=== PATIENT | female | born 1935 | race Caucasian/White ===

== ENCOUNTER 2020-01-28 21:55 | Inpatient (IN) | payer MEDICARE ==
[~2020-01-28] VITALS: Ht 167.6 cm; Wt 61.7 kg
--- NOTE | 2020-01-28 22:00 | NUR ---
MALORIE 76 FROM [facility] FOR "CONGESTION, HYPERTENSION, ELEVATED WBC AND MORE AGITATED THAN NORMAL . PT APEARS A, OX 1 , FOLLOWS COMMAND. PT WAS PLACED IN BED 4, ON MONITOR,. WILL CONT TO MONITOR ,
[2020-01-28] MEDS ORDERED: FUROSEMIDE 40 MG/4 ML VIAL IV ONE (22:30)
[2020-01-28] MEDS ORDERED: FUROSEMIDE 40 MG/4 ML VIAL ONE (22:39)
[2020-01-28 22:52] LABS: BASOPHILS # (AUTO) 0.1 /CMM (0.0-0.2); BASOPHILS % (AUTO) 0.4 % (0.0-2.0); HEMATOCRIT 28 % (33-45); HEMOGLOBIN 8.8 g/dL (11.5-14.8); LYMPHOCYTES # (AUTO) 0.4 /CMM (0.8-4.8); LYMPHOCYTES % (AUTO) 2.7 % (20.0-44.0); MEAN CORPUSCULAR HGB CONC 31 g/dl (31.0-36.0); MEAN CORPUSCULAR VOLUME 101 fL (82-100); MONOCYTES # (AUTO) 1.1 /CMM (0.1-1.30); MONOCYTES % (AUTO) 7.9 % (2.0-12.0); NEUTROPHILS # (AUTO) 12.3 /CMM (1.8-8.9); PLATELET COUNT (AUTO) 318 /CMM (150-450); WHITE BLOOD COUNT (AUTO) 13.8 K/uL (4.3-11.0)
[2020-01-28 23:21] LABS: ALANINE AMINOTRANSFERASE 18 U/L (12-78); ALKALINE PHOSPHATASE 52 U/L (46-116); ASPARTATE AMINOTRANSFERASE 37 U/L (15-37); B-TYPE NATRIURETIC PEPTIDE 30848 PG/ML (0-125); BILIRUBIN,DIRECT 0.6 mg/dL (0.0-0.2); BILIRUBIN,TOTAL 1.1 mg/dL (0.2-1.0); CALCIUM, SERUM 9.7 mg/dL (8.5-10.1); CARBON DIOXIDE 22 mmol/L (21-32); CHLORIDE 109 mmol/L (98-107); CREATININE 2.3 mg/dL (0.6-1.3); GLUCOSE 117 mg/dL (74-106); SODIUM SERUM 148 mmol/L (136-145); TOTAL PROTEIN, SERUM 6.4 g/dL (6.4-8.2); UREA NITROGEN, BLOOD 49 mg/dL (7-18)
[2020-01-28 23:24] LABS: POTASSIUM 2.7 mmol/L (3.5-5.1)
--- NOTE | 2020-01-28 23:47 | NUR ---
CALL FROM LAB, RAPID COVID POSITIVE
--- NOTE | 2020-01-28 23:56 | NUR ---
SPOKE TO GLORY (DAUGHTER) AND UPDATED HER RE PT'S CONDITION
--- NOTE | 2020-01-29 00:28 | NUR ---
DR. DRUMMOND PAGED PER ER ORDER.
[2020-01-29] MEDS ORDERED: MULT-213 PO (00:44)
[2020-01-29] MEDS ORDERED: ATOR20TA PO (00:44)
[2020-01-29] MEDS ORDERED: CLON-418 PO (00:44)
[2020-01-29] MEDS ORDERED: METO-358 PO (00:44)
[2020-01-29] MEDS ORDERED: ASCO500W7 PO (00:44)
[2020-01-29] MEDS ORDERED: DILT240C88 PO (00:44)
[2020-01-29] MEDS ORDERED: MONT10TA22 PO (00:44)
[2020-01-29] MEDS ORDERED: COUM1POW MC (00:44)
[2020-01-29] MEDS ORDERED: CALC1TAB3 PO (00:44)
[2020-01-29] MEDS ORDERED: ZINC220T4 PO (00:44)
[2020-01-29] MEDS: POTASSIUM CL. PREMIX PERIPHER. 50 ML IV SCH ×4 (01:05→06:50)
[2020-01-29] MEDS ORDERED: POTASSIUM CL. PREMIX PERIPHER. 50 ML ONE ×2 (01:57→04:48)
--- NOTE | 2020-01-29 04:00 | NUR ---
pt noted w/ infiltrated IV site on the RAC. a new 22G IV line was successfully stablished on the L wrist after multiple attempts. IV potassium chloride was resumed. will cont to monitor ,
--- NOTE | 2020-01-29 04:26 | NUR ---
relayed high BP and HR w/ afib on monitor. awaiting for response
[2020-01-29] MEDS ORDERED: DILTIAZEM HCL 25 MG IV ONE ×2 (04:49→21:22)
[2020-01-29] MEDS ORDERED: DILTIAZEM HCL 50 MG IV IV ONE ×2 (05:00→07:00)
[2020-01-29] MEDS ORDERED: ZOLPIDEM TARTRATE 5 MG TABLET PO PRN ×2 (06:30→11:30)
[2020-01-29] MEDS ORDERED: Z GUARD REMEDY 2 OZ OINT TP PRN ×2 (06:30→11:30)
[2020-01-29] MEDS ORDERED: ACETAMINOPHEN 325 MG TABLET PO PRN ×2 (06:30→11:30)
[2020-01-29] MEDS ORDERED: MAG HYDROX/AL HYDROX/SIMETH 30 ML UDC PO PRN (06:30)
[2020-01-29] MEDS ORDERED: MAGNESIUM HYDROXIDE 30 ML UDC PO PRN (06:30)
[2020-01-29] MEDS ORDERED: VANCOMYCIN 1 GM in IV D5W 250 ML IV SCH (06:30)
[2020-01-29] MEDS ORDERED: HYDROCODONE/APAP 5/325MG TABLET PO PRN (06:30)
[2020-01-29] MEDS ORDERED: ONDANSETRON HCL/PF 4 MG/2 ML VIAL IVP PRN ×2 (06:30→11:30)
--- NOTE | 2020-01-29 06:53 | NUR ---
high hr and bp was relayed to dr ella head a new order for diltiazem. noted
[2020-01-29] MEDS ORDERED: DILTIAZEM HCL 25 MG IV INJ ONE (07:00)
--- NOTE | 2020-01-29 08:00 | NUR ---
PATIENT A/OX2, BREATHING EVEN AND UNLABORED, ATTEMPTING TO REMOVE NASAL CANNULA, RE-ORIENTED PATIENT. NO DISTRESS NOTED.
[2020-01-29] MEDS: CEFEPIME 2 GM in IV D5W 100 ML IV SCH (08:30)
[2020-01-29] MEDS: DEXAMETHASONE SOD PHOSPHATE 10 MG/ML VIAL IV SCH (09:31)
[2020-01-29] MEDS: APIXABAN 5 MG TABLET PO SCH ×2 (09:31→16:45)
--- NOTE | 2020-01-29 11:00 | NUR ---
PATIENT SEEN AND EXAMINED BY YOANA JERRY NP, MADE AWARE OF ELEVATED HEART RATE AND BLOOD PRESSURE.
[2020-01-29] MEDS ORDERED: METOPROLOL SUCCINATE 50 MG TAB.SR.24H PO SCH (11:30)
[2020-01-29] MEDS: DILTIAZEM HCL IV 125 MG in IV NS 0.9% 100 ML IV PRN ×2 (11:30→21:40)
[2020-01-29] MEDS ORDERED: CLONIDINE HCL 0.1 MG TABLET PO PRN (11:30)
[2020-01-29 12:01] LABS: BASOPHILS % (AUTO) 0.2 % (0.0-2.0); HEMATOCRIT 29 % (33-45); HEMOGLOBIN 9.1 g/dL (11.5-14.8); LYMPHOCYTES # (AUTO) 0.4 /CMM (0.8-4.8); LYMPHOCYTES % (AUTO) 2.8 % (20.0-44.0); MEAN CORPUSCULAR HGB CONC 32 g/dl (31.0-36.0); MEAN CORPUSCULAR VOLUME 99 fL (82-100); MONOCYTES % (AUTO) 6.8 % (2.0-12.0); NEUTROPHILS # (AUTO) 13.7 /CMM (1.8-8.9); NEUTROPHILS % (AUTO) 90.2 % (43.0-81.0); PLATELET COUNT (AUTO) 354 /CMM (150-450); RED BLOOD CELL COUNT(AUTO) 2.89 MIL/uL (4.0-5.2); WHITE BLOOD COUNT (AUTO) 15.2 K/uL (4.3-11.0)
--- NOTE | 2020-01-29 13:00 | NUR ---
MEDICATION GIVEN WITH APPLESAUCE. REPOSITIONED.
[2020-01-29 15:13] LABS: CALCIUM, SERUM 9.3 mg/dL (8.5-10.1); CARBON DIOXIDE 21 mmol/L (21-32); CHLORIDE 111 mmol/L (98-107); CREATININE 2.2 mg/dL (0.6-1.3); GLUCOSE 109 mg/dL (74-106); POTASSIUM 3.3 mmol/L (3.5-5.1); SODIUM SERUM 152 mmol/L (136-145); UREA NITROGEN, BLOOD 54 mg/dL (7-18)
[2020-01-29 15:34] LABS: CALCIUM, SERUM 9.2 mg/dL (8.5-10.1); CARBON DIOXIDE 21 mmol/L (21-32); CHLORIDE 110 mmol/L (98-107); CREATININE 2.3 mg/dL (0.6-1.3); GLUCOSE 160 mg/dL (74-106); SODIUM SERUM 150 mmol/L (136-145); UREA NITROGEN, BLOOD 55 mg/dL (7-18)
[2020-01-29] MEDS: hydrALAZINE HCL 10 MG TABLET PO SCH ×2 (16:30→21:20)
[2020-01-29 19:53] LABS: C-REACTIVE PROTEIN 38.8 mg/dL (0.0-0.9)
--- NOTE | 2020-01-29 20:00 | NUR ---
pt remains in bed, awake alert oriented x2 breathing even and unlabored no complaint of pain or distress, will continue to monitor
[2020-01-29] MEDS: ATORVASTATIN 10 MG TABLET PO SCH (20:01)
[2020-01-29] MEDS: LABETALOL HCL (100MG) 100 MG TABLET PO SCH (20:01)
[2020-01-29] MEDS ORDERED: hydrALAZINE HCL 10 MG TABLET ONE (21:10)
[2020-01-29] MEDS ORDERED: LABETALOL HCL (100MG) 100 MG TABLET ONE (21:13)
[2020-01-29] MEDS ORDERED: DILTIAZEM HCL 50 MG IV ONE (21:22)
[2020-01-29] MEDS: IV NS 0.9% 1,000 ML IV PRN (23:00)
--- NOTE | 2020-01-29 23:00 | NUR ---
pt constantly removing mask, placed on simple mast at 10L saturating at 95%
[2020-01-29] MEDS ORDERED: HYDROCODONE/APAP 5/325MG TABLET ONE (23:32)
--- NOTE | 2020-01-30 02:00 | NUR ---
pt continues to remove mask, replaced with non rebreather 10L after desaturating with simple mask. pt currently saturating 98% will continue to monitor
[2020-01-30 04:27] LABS: BASOPHILS % (AUTO) 0.1 % (0.0-2.0); HEMATOCRIT 27 % (33-45); HEMOGLOBIN 8.6 g/dL (11.5-14.8); LYMPHOCYTES # (AUTO) 0.4 /CMM (0.8-4.8); LYMPHOCYTES % (AUTO) 2.1 % (20.0-44.0); MEAN CORPUSCULAR HGB CONC 32 g/dl (31.0-36.0); MEAN CORPUSCULAR VOLUME 98 fL (82-100); MONOCYTES % (AUTO) 5.5 % (2.0-12.0); NEUTROPHILS % (AUTO) 92.3 % (43.0-81.0); PLATELET COUNT (AUTO) 368 /CMM (150-450); RED BLOOD CELL COUNT(AUTO) 2.72 MIL/uL (4.0-5.2); WHITE BLOOD COUNT (AUTO) 18.4 K/uL (4.3-11.0)
[2020-01-30 04:51] LABS: B-TYPE NATRIURETIC PEPTIDE 27205 PG/ML (0-125); CALCIUM, SERUM 9.5 mg/dL (8.5-10.1); CARBON DIOXIDE 27 mmol/L (21-32); CHLORIDE 112 mmol/L (98-107); CREATININE 2.4 mg/dL (0.6-1.3); GLUCOSE 163 mg/dL (74-106); PHOSPHORUS 3.7 mg/dL (2.5-4.9); SODIUM SERUM 151 mmol/L (136-145); UREA NITROGEN, BLOOD 59 mg/dL (7-18)
[2020-01-30] MEDS ORDERED: hydrALAZINE HCL 10 MG TABLET ONE (05:09)
[2020-01-30] MEDS: hydrALAZINE HCL 10 MG TABLET PO SCH ×3 (05:24→21:00)
--- NOTE | 2020-01-30 07:02 | NUR ---
PT REMAINS IN BED, ON NON REBREATHER 15L, CONTINUED ATTEMPTS TO REMOVE MASK. REORIENTED NEEDED, VSS
[2020-01-30] MEDS: CEFEPIME 2 GM in IV D5W 100 ML IV SCH (08:30)
[2020-01-30 09:17] LABS: ABG BASE EXCESS -2.6 mmol/L; ABG OXYGEN SATURATION 98.6 % (92.0-98.5); ABG PCO2 32.9 mmHg (35.0-45.0); ABG PH 7.429 (7.350-7.450); ABG PO2 172.7 mmHg (75.0-100.0); AaDO2 363.2 mmHg; COHb 0.1 % (0.5-1.5); MetHb 0.5 % (0.0-1.5); SITE, ABG Right Radial; VENT MODE, BG NRB
[2020-01-30] MEDS: DEXAMETHASONE SOD PHOSPHATE 10 MG/ML VIAL IV SCH (10:00)
[2020-01-30] MEDS: LABETALOL HCL (100MG) 100 MG TABLET PO SCH ×2 (10:00→21:00)
[2020-01-30] MEDS ORDERED: POTASSIUM CHLORIDE 20 MEQ TAB.PRT.SR PO SCH (10:30)
[2020-01-30] MEDS: IV NS 0.9% 1,000 ML IV PRN (10:51)
[2020-01-30] MEDS: DILTIAZEM HCL IV 125 MG in IV NS 0.9% 100 ML IV PRN (10:51)
--- NOTE | 2020-01-30 10:58 | NUR ---
SPOKE TO DR. MYERS PRODUCTION LINE TECHNICIAN AND HE GAVE VERBAL ORDER TO GIVE POTASSIUM 40MEQ IV. CANCELLED HARRY'S KDUR ORDER BECAUSE PATIENT UNABLE TO SWALLOW BIG PILLS. RISK FOR ASPIRATION.
[2020-01-30] MEDS: POTASSIUM CL. PREMIX PERIPHER. 50 ML IV SCH ×4 (11:15→14:17)
[2020-01-30] MEDS ORDERED: AMIODARONE 450 MG in IV D5W 250 ML IV PRN (12:00)
[2020-01-30] MEDS ORDERED: AMIODARONE 150 MG in IV D5W 100 ML IV ONE (12:00)
[2020-01-30] MEDS ORDERED: HYDROCODONE/APAP 5/325MG TABLET ONE (13:59)
[2020-01-30 14:49] LABS: FERRITIN 2097 ng/mL (8-388); TRIGLYCERIDES 153 mg/dL (30-150)
[2020-01-30 14:50] LABS: CHOLESTEROL 153 mg/dL (<200); HDL CHOLESTEROL 31 mg/dL (40-60); LDL 92 mg/dL (0-99)
--- NOTE | 2020-01-30 15:34 | NUR ---
SPOKE TO DR. MCDONALD AND RECEIVED ORDER TO DOWNGRADE PATIENT TO JUDITH.
[2020-01-30 15:50] LABS: CREATINE KINASE, TOTAL 92 U/L (26-192)
[2020-01-30 15:51] LABS: C-REACTIVE PROTEIN 40.6 mg/dL (0.0-0.9)
--- NOTE | 2020-01-30 17:27 | NUR ---
GOT BED 109
--- NOTE | 2020-01-30 17:45 | NUR ---
PICC LINE INSERTED ON LOYD TRIPLE LUMEN. FLUSHING AND INTACT.
[2020-01-30] MEDS ORDERED: VANCOMYCIN 1.25 GM in IV D5W 250 ML IV SCH ×2 (18:00→21:00)
--- NOTE | 2020-01-30 18:38 | NUR ---
GAVE BEDSIDE REPORT TO IMMACULATE RN, ENDORSED AMIODARONE DRIP AND VANCOMYCIN IV. PATIENT ON 15LPM VIA NRB. NO DISTRESS NOTED.
--- NOTE | 2020-01-30 18:38 | NUR ---
RN ADMITTING NOTES PT TRANSPORTED TO UNIT BY [facility] AT THIS TIME. RECEIVED BEDSIDE REPORT FROM HALIMA LOZA. PT 15LPM NON REBREATHER. PT ABLE OPEN EYES, RESPONSE TO LIGHT STIMULUS. FAJARDO CATHER IN PLACE DRAINING TO GRAVITY, CLEAR YELLOW URINE OUTPUT. ACTIVE BOWEL SOUNDS NOTED IN ALL FOUR QUADRANTS, SKIN WARM TO TOUCH, PULSES PRESENTLY BILATERALLY. CAPILLARY REFILL <3 SECONDS. PT NOTED WITH MULTIPLE BRUISES. ASPIRATION AND SAFETY PRECAUTION IN PLACE AND MAINTAINED AT ALL TIMES. BED IN LOWEST LOCKED POSITION, HOB ELEVATED, SIDE RAILS UP X 2, CALL LIGHT AND TABLE WITHIN REACH. WILL CONTINUE TO MONITOR
--- NOTE | 2020-01-30 19:30 | NUR ---
CEREAL MAKER CLOSING NOTES PT AWAKE IN BED AT THIS TIME. PT IS STABLE. ASPIRATION AND SAFETY PRECAUTION IN PLACE AND MAINTAINED AT ALL TIMES. BED IN LOWEST LOCKED POSITION, HOB ELEVATED, SIDE RAILS UP X 2, CALL LIGHT AND TABLE WITHIN REACH. ENDORSED TO CYTOTECHNOLOGIST/HISTOTECHNOLOGIST NURSE FOR YASMIN
--- NOTE | 2020-01-30 19:40 | NUR ---
1939 RECEIVED PATIENT IN BED ON 100% NRM, O2 SATURATION 100%. EYES CLOSED AND AROUSABLE ONLY TO TACTILE STIMULI. SKIN PALE AND COOL TO TOUCH. SBP IN THE 60S. NOTED WITH AMIODARONE DRIP INFUSING TO RIGHT ARM PICC LINE. TURNED OFF MEDICATION DUE TO HYPOTENSION. UNABLE TO DO SKIN ASSESSMENT AT THIS TIME DUE TO PATIENT IN UNSTABLE CONDITION.
--- NOTE | 2020-01-30 19:50 | NUR ---
1950 NOTED PATIENT'S BLOOD PRESSURE 68/48 HR 70S, TURNED OFF AMIODARONE DRIP AND NOTIFY DR. MYERS WITH ORDER TO TURN OFF AMIODARONE DRIP , GIVE 500ML NS BOLUS ONCE, AND TRANSFER PATIENT TO ICU IF BP DID NOT IMPROVE. ORDER NOTED AND CARRIED OUT.
--- NOTE | 2020-01-30 20:00 | NUR ---
2000 NS BOLUS 500ML STARTED ORDERED.
[2020-01-30] MEDS ORDERED: IV NS 0.9% 500 ML IV ONE (20:30)
--- NOTE | 2020-01-30 21:10 | NUR ---
2109 PATIENT'S BLOOD PRESSURE REMAINS IN THE 70S AFTER 500 NS BOLUS, DR. MYERS NOTIFIED WITH ORDER TO START PATIENT ON NEOSYNEPHRINE DRIP PER PROTOCOL TO KEEP MAP >60 AND TO TRANSFER PATIENT ICU STATUS. ORDER NOTED AND CARRIED OUT. PHARMACY NOTIFIED.
[2020-01-30] MEDS ORDERED: PHENYLEPHRINE 50 MG in IV NS 0.9% 245 ML IV PRN (21:30)
[2020-01-30] MEDS: ATORVASTATIN 10 MG TABLET PO SCH (22:00)
--- NOTE | 2020-01-30 22:00 | NUR ---
2200 NEOSYNEPHRINE STARTED, CONNECTED TO RIGHT PICC LINE. SBP REMAINS IN THE 70S. NO SIGNS OF DISTRESS NOTED. PATIENT KEEPS MAKING LOUD INCOMPREHENSIBLE SOUND. O2 SATURATION KEPT AT 100% ON NRM.
[2020-01-30 23:00] VITALS: BP 77/52
--- NOTE | 2020-01-30 23:50 | NUR ---
2350 UNABLE TO APPRECIATE TEMPERATURE, PLACED PATIENT ON FIFI HUGGER WARMING MEASURE. NO SIGNS OF DISTRESS NOTED. NEOSYNEPHRINE BEING TITRATED PER PROTOCOL FOR BP SUPPORT. CONT TO TOLERATE NRM, O2 SATURATION MAINTAINED AT 100%.
[2020-01-31] VITALS (25 sets, daily range): BP systolic 85–144; BP diastolic 39–110
--- NOTE | 2020-01-31 01:00 | NUR ---
0100 BLOOD PRESSURE IN THE 80S-90S WITH MAP MAINTAINED ABOVE 60. REMAINS ON WARMING MEASURES. PATIENT OPENS SPONTANEOUSLY. UNABLE TO RESPOND VERBALLY. NO SIGNS OF DISTRESS NOTED. O2 SATURATION 100% ON NRM.
[2020-01-31] MEDS: IV 1/2NS 1000 ML 1,000 ML IV PRN ×2 (01:42→16:32)
--- NOTE | 2020-01-31 02:00 | NUR ---
0200 ABLE TO TURN DUE TO MORE STABLE VITAL SIGNS. NO PRESSURE SORE NOTED. RECTAL TEMPERATURE TAKEN 94.7. REMAINS ON FIFI HUGGER WARMING MEASURES.
--- NOTE | 2020-01-31 03:00 | NUR ---
0300 PATIENT MORE AWAKE, ABLE TO REMOVE NRM. DOES NOT FOLLOW COMMANDS WHEN RE DIRECTED. REMAINS ON FIFI HUGGER FOR LOW TEMPERATURE. BP MAINTAINED WITH NEOSYNEPHRINE ORDERED. NO RESPIRATORY DISTRESS NOTED.
--- NOTE | 2020-01-31 04:00 | NUR ---
0400 BP MAINTAINED IN THE 100S WITH MAP KEPT ABOVE GOAL OF >60MMHG. NO DISTRESS NOTED. KEPT OF WARMING MEASURES. KEPT COMFORTABLE. NEEDS ATTENDED.
[2020-01-31] MEDS: hydrALAZINE HCL 10 MG TABLET PO SCH ×3 (05:00→20:09)
--- NOTE | 2020-01-31 05:00 | NUR ---
0500 NEOSYNEPHINE BEING TITRATED DOWN PER PROTOCOL. BP REMAINS STABLE. NO CHANGES IN NEURO STATUS NOTED.
--- NOTE | 2020-01-31 07:00 | NUR ---
0700 BP 122/55, NEOSYNEPHRINE TURNED OFF AT THIS TIME. PATIENT MORE AWAKE. NO SIGNS OF DISTRESS NOTED. O2 SATURATION 100% ON NRM.
--- NOTE | 2020-01-31 07:02 | NUR ---
DOCUMENTATION BILLING CLERK OPENING NOTES RECEIVED PT AWAKE IN BED AT THIS TIME.PT MURMURS, EYES OPEN. NO S/S OF ANY ACUTE DISTRESS NOTED. PT NOTED ON 15LPM NON REBREATHER. SIVAN MIDLINE IN PLACE, RFA/L-HAND G#22 BOTH INTACT, PATENT AND FLUSHING WELL. SAFETY PRECAUTION IN PLACE AND MAINTAINED AT ALL TIMES. BED IN LOWEST LOCKED POSITION, HOB ELEVATED, SIDE RAILS UP X 2, CALL LIGHT AND TABLE WITHIN REACH. WILL CONTINUE TO MONITOR Addendum: 01/31/20 at 2012 by SHEYLA NOEL RN DOCUMENTATION BILLING CLERK OPENING NOTES RECEIVED PT AWAKE IN BED AT THIS TIME.PT MURMURS, EYES OPEN. NO S/S OF ANY ACUTE DISTRESS NOTED. PT NOTED ON 15LPM NON REBREATHER. LOYD PICC LINE IN PLACE, RFA/L-HAND G#22 BOTH INTACT, PATENT AND FLUSHING WELL. SAFETY PRECAUTION IN PLACE AND MAINTAINED AT ALL TIMES. BED IN LOWEST LOCKED POSITION, HOB ELEVATED, SIDE RAILS UP X 2, CALL LIGHT AND TABLE WITHIN REACH. WILL CONTINUE TO MONITOR
[2020-01-31 07:08] LABS: BASOPHILS % (AUTO) 0.2 % (0.0-2.0); HEMATOCRIT 23 % (33-45); HEMOGLOBIN 7.2 g/dL (11.5-14.8); LYMPHOCYTES # (AUTO) 0.4 /CMM (0.8-4.8); LYMPHOCYTES % (AUTO) 1.6 % (20.0-44.0); MEAN CORPUSCULAR HGB CONC 31 g/dl (31.0-36.0); MEAN CORPUSCULAR VOLUME 102 fL (82-100); MONOCYTES # (AUTO) 0.8 /CMM (0.1-1.30); NEUTROPHILS # (AUTO) 25.3 /CMM (1.8-8.9); NEUTROPHILS % (AUTO) 95.2 % (43.0-81.0); PLATELET COUNT (AUTO) 309 /CMM (150-450); WHITE BLOOD COUNT (AUTO) 26.6 K/uL (4.3-11.0)
[2020-01-31 07:49] LABS: CALCIUM, SERUM 8.1 mg/dL (8.5-10.1); CARBON DIOXIDE 17 mmol/L (21-32); CHLORIDE 114 mmol/L (98-107); CREATININE 2.8 mg/dL (0.6-1.3); GLUCOSE 159 mg/dL (74-106); MAGNESIUM 1.8 mg/dL (1.8-2.4); POTASSIUM 3.6 mmol/L (3.5-5.1); SODIUM SERUM 150 mmol/L (136-145); UREA NITROGEN, BLOOD 73 mg/dL (7-18)
[2020-01-31] MEDS ORDERED: VANCOMYCIN 1 GM in IV D5W 250 ML IV SCH (08:00)
[2020-01-31] MEDS: CEFEPIME 2 GM in IV D5W 100 ML IV SCH (08:31)
[2020-01-31] MEDS: DEXAMETHASONE SOD PHOSPHATE 10 MG/ML VIAL IV SCH (08:37)
[2020-01-31] MEDS: LABETALOL HCL (100MG) 100 MG TABLET PO SCH ×2 (08:38→20:09)
[2020-01-31 08:40] LABS: LYMPHOCYTES % (MANUAL) 5 % (16-48); MONOCYTES % (MANUAL) 5 % (0-11.0); NEUTROPHILS % (MANUAL) 90 (42-76)
--- NOTE | 2020-01-31 09:00 | NUR ---
PER DR CASON, KEEP PT OFF VASOPRESSOR AND HOLD LABETALOL AT THIS TIME. ORDERS READ BACK AND CARRIED OUT. WILL CONTINUE TO MONITOR
[2020-01-31 09:02] LABS: PHOSPHORUS 4.1 mg/dL (2.5-4.9)
[2020-01-31] MEDS: AMIODARONE 450 MG in IV D5W 250 ML IV PRN (10:35)
--- NOTE | 2020-01-31 13:16 | NUR ---
DR ORLANDO, GAVE ORDERS FOR STAT ABG's, ORDERS READ BACK AND CARRIED OUT. WILL CONTINUE TO MONITOR
[2020-01-31 13:46] LABS: ABG BASE EXCESS -9.9 mmol/L; ABG OXYGEN SATURATION 97.8 % (92.0-98.5); ABG PCO2 25.3 mmHg (35.0-45.0); ABG PH 7.367 (7.350-7.450); ABG PO2 110.2 mmHg (75.0-100.0); AaDO2 433.6 mmHg; MetHb 0.3 % (0.0-1.5); O2Hb 97.5 % (94.0-97.0); SITE, ABG Right Radial; VENT MODE, BG NRB
--- NOTE | 2020-01-31 15:30 | NUR ---
GLORY MARIBEL ([phone]), PT'S DAUGHTER, CALLED AND WAS UPDATED ON PT'S STATUS. WILL CONTINUE WITH PLAN OF CARE
--- NOTE | 2020-01-31 16:00 | NUR ---
PT PULLED OUT LOYD PICC LINE, BLEEDING CONTROLLED, PRESSURE APPLIED, SECURED WITH GAUZE AND TAPE. DR MCDONALD MADE AWARE. WILL CONTINUE TO MONITOR
--- NOTE | 2020-01-31 17:16 | NUR ---
RECEIVED ORDERS FOR RESTRAINS FROM DR MCDONALD, ORDERS CARRIED OUT, WILL CONTINUE TO MONITOR
--- NOTE | 2020-01-31 17:20 | NUR ---
PT ON BILATERAL SOFT WRIST RESTRAINS, WILL CONTINUE TO MONITOR
--- NOTE | 2020-01-31 19:00 | NUR ---
PT'S RESTRAINS ASSESSMENT DONE AT THIS TIME, PULSES PRESENT BILATERALLY, GOOD CIRCULATION NOTED, CAPILLARY REFILL < 3SECONDS. WILL ENDORSE TO EDGE INKER NURSE FOR YASMIN
--- NOTE | 2020-01-31 19:10 | NUR ---
CABINET BUILDER CLOSING NOTES PT RESTING IN BED AT THIS TIME. EASY TO AROUSE. PT REMAINED STABLE THROUGHOUT SHIFT. ALL CARE, NEED, MEDICATIONS AND TREATMENT ADMINISTERED ANTICIPATED PER ORDER. PT KEPT CLEAN AND DRY. SAFETY PRECAUTION IN PLACE AND MAINTAINED AT ALL TIMES. BED IN LOWEST LOCKED POSITION, HOB ELEVATED, SIDE RAILS UP X 2, CALL LIGHT AND TABLE WITHIN REACH. WILL ENDORSE TO PLATING TANK OPERATOR APPRENTICE NURSE FOR YASMIN
--- NOTE | 2020-01-31 19:30 | NUR ---
RN NOTE RECEIVED PATIENT IN BED, CONFUSED. PATIENT IN NO S/SX OF ACUTE DISTRESS AT THIS TIME. PATIENT'S BREATHING IS EVEN AND UNLABORED. PATIENT IS ON 15 L OF OXYGEN VIA NRB MASK, TOLERATING WELL, SATURATING AT 99%. PATIENT ON TELE MONITOR READING AFIB, HR IS 112. NOTED IV SITE AT RFA AND L HAND 22G, AND SIVAN MIDLINE, PATENT AND FLUSHING WELL,NO S/S OF INFECTION, WITH IV FLUID OF 0.45 NS INFUSING AT 75 ML/HR, AND AMIODARONE DRIP AT 0.5 MG/MIN. PATIENT ON BILATERAL SOFT WRIST RESTRAINTS, SKIN AND CIRCULATION CHECKED PER PROTOCOL. NPO STATUS MAINTAINED, PENDING SWALLOW EVALUATION. FAJARDO CATHETER CONNECTED TO URINE BAG IN PLACE, DRAINING TO A CLEAR YELLOW URINE. SAFETY MEASURES HAVE BEEN PROVIDED AND IMPLEMENTED. PATIENT BED ALARM IS ON. HEAD OF BED ELEVATED. BED IS LOCKED, IN LOWEST POSITION AND SIDE RAILS UP. CALL LIGHT WITHIN REACH OF THE PATIENT. WILL CONTINUE TO MONITOR AND REASSESS FOR ANY CHANGES.
[2020-01-31] MEDS: ATORVASTATIN 10 MG TABLET PO SCH (22:00)
[2020-02-01] VITALS (17 sets, daily range): BP systolic 103–157; BP diastolic 52–109
[2020-02-01] MEDS: AMIODARONE 450 MG in IV D5W 250 ML IV PRN ×2 (00:50→18:34)
[2020-02-01] MEDS: hydrALAZINE HCL 10 MG TABLET PO SCH (05:00)
[2020-02-01] MEDS: IV 1/2NS 1000 ML 1,000 ML IV PRN ×2 (05:48→20:20)
--- NOTE | 2020-02-01 08:00 | NUR ---
received patient confused in no acute distress noted confused resp unlabored no acute distress noted patient on NRB mask 15 HOB elevated 45 degree iv infusing well with no signs of distress noted will continue to assess and evaluate amiodaron drip at 0,5 mg/hr with a fib 115 uncontrol a fib
[2020-02-01 08:09] LABS: BASOPHILS % (AUTO) 0.1 % (0.0-2.0); HEMATOCRIT 25 % (33-45); HEMOGLOBIN 7.4 g/dL (11.5-14.8); LYMPHOCYTES # (AUTO) 0.6 /CMM (0.8-4.8); LYMPHOCYTES % (AUTO) 1.4 % (20.0-44.0); MEAN CORPUSCULAR HGB CONC 30 g/dl (31.0-36.0); MEAN CORPUSCULAR VOLUME 104 fL (82-100); MONOCYTES # (AUTO) 0.8 /CMM (0.1-1.30); MONOCYTES % (AUTO) 1.9 % (2.0-12.0); NEUTROPHILS % (AUTO) 96.6 % (43.0-81.0); PLATELET COUNT (AUTO) 369 /CMM (150-450)
[2020-02-01 08:13] LABS: WHITE BLOOD COUNT (AUTO) 43.4 K/uL (4.3-11.0)
--- NOTE | 2020-02-01 08:15 | NUR ---
lab called in stated that wbc 43.4 was notified
[2020-02-01 08:35] LABS: CARBON DIOXIDE 12 mmol/L (21-32); CHLORIDE 113 mmol/L (98-107); CREATININE 3.2 mg/dL (0.6-1.3); GLUCOSE 191 mg/dL (74-106); MAGNESIUM 1.8 mg/dL (1.8-2.4); PHOSPHORUS 3.3 mg/dL (2.5-4.9); POTASSIUM 3.9 mmol/L (3.5-5.1); SODIUM SERUM 145 mmol/L (136-145)
[2020-02-01] MEDS: CEFEPIME 2 GM in IV D5W 100 ML IV SCH (08:42)
[2020-02-01 08:52] LABS: UREA NITROGEN, BLOOD 97 mg/dL (7-18)
[2020-02-01] MEDS: DEXAMETHASONE SOD PHOSPHATE 10 MG/ML VIAL IV SCH (08:59)
[2020-02-01 09:48] LABS: LYMPHOCYTES % (MANUAL) 3 % (16-48); MONOCYTES % (MANUAL) 1 % (0-11.0); NEUTROPHILS % (MANUAL) 96 (42-76)
[2020-02-01] MEDS: ENOXAPARIN SODIUM 30 MG/0.3 ML DISP.SYRIN SQ SCH (13:40)
[2020-02-01] MEDS ORDERED: hydrALAZINE HCL IV 20 MG VIAL IV PRN (17:00)
--- NOTE | 2020-02-01 20:20 | NUR ---
RN NOTE RECEIVED PATIENT IN BED, CONFUSED. PATIENT IN NO S/SX OF ACUTE DISTRESS AT THIS TIME. PATIENT'S BREATHING IS EVEN AND UNLABORED. PATIENT IS ON 15 L OF OXYGEN VIA NRB MASK, TOLERATING WELL, SATURATING AT 99%. PATIENT ON TELE MONITOR READING AFIB, HR IS 111. NOTED IV SITE L HAND 22G, AND SIVAN MIDLINE, PATENT AND FLUSHING WELL,NO S/S OF INFECTION, WITH IV FLUID OF 0.45 NS INFUSING AT 75 ML/HR, AND AMIODARONE DRIP AT 0.5 MG/MIN. PATIENT ON BILATERAL SOFT WRIST RESTRAINTS, SKIN AND CIRCULATION CHECKED PER PROTOCOL. NPO STATUS MAINTAINED, PENDING SWALLOW EVALUATION. FAJARDO CATHETER CONNECTED TO URINE BAG IN PLACE, DRAINING TO A CLEAR YELLOW URINE. SAFETY MEASURES HAVE BEEN PROVIDED AND IMPLEMENTED. PATIENT BED ALARM IS ON. HEAD OF BED ELEVATED. BED IS LOCKED, IN LOWEST POSITION AND SIDE RAILS UP. CALL LIGHT WITHIN REACH OF THE PATIENT. WILL CONTINUE TO MONITOR AND REASSESS FOR ANY CHANGES.
[2020-02-02] VITALS (10 sets, daily range): BP systolic 90–162; BP diastolic 45–78
[2020-02-02] MEDS ORDERED: METRONIDAZOLE 500MG/ NS 100ML 500 MG in PREMIX 1 EA IV SCH ×2 (01:00→13:00)
[2020-02-02] MEDS ORDERED: METRONIDAZOLE 500MG/ NS 100ML 100 ML IV ONE (03:20)
--- NOTE | 2020-02-02 07:30 | NUR ---
RN OPENING NOTES RECEIVED PATIENT IN BED, AWAKE, OBTUNDED, NOT RESPONDING TO STIMULI, ON NON REBREATHER MASK AT 15l spo2 IS 100%, TOLERATING WELL, TELE-MONITOR SHOWING A-FIB 105-110, NPO STATUS NOTED, WRIST RESTRAINS ON, PROVIDED ASSESSMENT, OFFLOADING , LEFT ARM DRESSING NOTED, INTACT,L WRIST IV NOTED AND L MIDLINE NOTES, BOTH PATENT AND INTACT, RUNNING AMIODARONE DRIP @ 0.5 MG/MIN, TOLERATING WELL, SAFETY MEASURES IN PLACE, CALL LIGHT IN REACH, HOB ELEVATED, MONITOR BP AND O2 IS WORKING APPROPRIATE, WILL CONT TO MONITOR
--- NOTE | 2020-02-02 07:37 | NUR ---
RN CLOSING NOTES PATIENT REMAINS IN ROOM IN NO SIGNS OF RESPIRATORY DISTRESS. PATIENT SATURATING >95% OF 02. VITAL SIGNS WNL. IV LINE MAINTAINED, INTACT, PATENT AND FLUSHING, NO SITE REDNESS OR INFILTRATION. SAFETY PRECAUTIONS IN PLACE AND COMFORT MEASURES RENDERED. BED IN LOWEST POSITION, CALL LIGHT WITHIN REACH, BREAKS ON, SIDE RAILS UP. ALL NEEDS ATTENDED, MEDICATIONS GIVEN SCHEDULED AND ORDERED ; SHIFT ASSESSMENT/BEDBATH/SKIN CARE DONE. PATIENT KEPT CLEAN AND DRY. WILL ENDORSE TO INCOMING SHIFT FOR YASMIN WITH ALL PERTINENT INFO REGARDING PATIENT STATUS.
[2020-02-02 08:06] LABS: BASOPHILS # (AUTO) 0.1 /CMM (0.0-0.2); BASOPHILS % (AUTO) 0.2 % (0.0-2.0); HEMATOCRIT 27 % (33-45); HEMOGLOBIN 8.2 g/dL (11.5-14.8); LYMPHOCYTES # (AUTO) 0.4 /CMM (0.8-4.8); LYMPHOCYTES % (AUTO) 1.4 % (20.0-44.0); MEAN CORPUSCULAR HGB CONC 31 g/dl (31.0-36.0); MEAN CORPUSCULAR VOLUME 100 fL (82-100); MONOCYTES # (AUTO) 0.7 /CMM (0.1-1.30); MONOCYTES % (AUTO) 2.1 % (2.0-12.0); NEUTROPHILS # (AUTO) 30.3 /CMM (1.8-8.9); NEUTROPHILS % (AUTO) 96.3 % (43.0-81.0); PLATELET COUNT (AUTO) 267 /CMM (150-450); RED BLOOD CELL COUNT(AUTO) 2.65 MIL/uL (4.0-5.2)
[2020-02-02 08:21] LABS: CALCIUM, SERUM 8.2 mg/dL (8.5-10.1); CARBON DIOXIDE 15 mmol/L (21-32); CHLORIDE 110 mmol/L (98-107); CREATININE 3.5 mg/dL (0.6-1.3); GLUCOSE 208 mg/dL (74-106); MAGNESIUM 1.7 mg/dL (1.8-2.4); PHOSPHORUS 3.1 mg/dL (2.5-4.9); POTASSIUM 3.9 mmol/L (3.5-5.1); SODIUM SERUM 141 mmol/L (136-145); WHITE BLOOD COUNT (AUTO) 31.5 K/uL (4.3-11.0)
[2020-02-02 09:05] LABS: UREA NITROGEN, BLOOD 116 mg/dL (7-18)
[2020-02-02 09:15] LABS: PLATELET COUNT (AUTO) 267 /CMM (150-450)
[2020-02-02 09:17] LABS: D-DIMER 1.26 mg/L(FEU (0.17-0.50)
--- NOTE | 2020-02-02 09:30 | NUR ---
lab called in wbc 31.5 Hgb 8.2 hct 26.5 Ptt 82.6 InR ABOVE 10 dR Batres notified re; lab resutls
[2020-02-02 09:46] LABS: ALBUMIN 1.8 g/dL (3.4-5.0); BILIRUBIN,DIRECT 0.5 mg/dL (0.0-0.2); TOTAL PROTEIN, SERUM 4.4 g/dL (6.4-8.2)
[2020-02-02] MEDS: CEFEPIME 2 GM in IV D5W 100 ML IV SCH (09:58)
[2020-02-02] MEDS: DEXAMETHASONE SOD PHOSPHATE 10 MG/ML VIAL IV SCH (09:59)
[2020-02-02] MEDS: ENOXAPARIN SODIUM 30 MG/0.3 ML DISP.SYRIN SQ SCH (10:01)
--- NOTE | 2020-02-02 10:30 | NUR ---
SATURATED DRESSINGS NOTED ON L HAND, PATIENT HAS HX OF PULLING OUT HER PICC LINE, ASSES THE BLEEDING SITE, MINIMAL DRAINAGE IN PLACE, APPLIED FRESH DRESSING, CONT TO MONITOR CLOSELY
[2020-02-02] MEDS: AMIODARONE 450 MG in IV D5W 250 ML IV PRN (10:35)
[2020-02-02 11:33] LABS: LYMPHOCYTES % (MANUAL) 1 % (16-48); MONOCYTES % (MANUAL) 2 % (0-11.0); NEUTROPHILS % (MANUAL) 97 (42-76)
[2020-02-02] MEDS ORDERED: PHYTONADIONE INJ 10 MG/1 ML AMPUL SQ ONE (12:00)
[2020-02-02] MEDS ORDERED: PHYTONADIONE INJ 10 MG/1 ML AMPUL SQ SCH (12:30)
[2020-02-02] MEDS ORDERED: ACETAMINOPHEN 325 MG TABLET PO ONE (12:30)
[2020-02-02] MEDS ORDERED: diphenhydrAMINE HCL 50 MG/ML VIAL IV ONE (12:30)
[2020-02-02] MEDS ORDERED: LABETALOL HCL IV 100MG VIAL IV PRN (12:30)
[2020-02-02 12:37] LABS: ABG BASE EXCESS -12.6 mmol/L; ABG OXYGEN SATURATION 98.5 % (92.0-98.5); ABG PCO2 24.1 mmHg (35.0-45.0); ABG PH 7.324 (7.350-7.450); ABG PO2 137.8 mmHg (75.0-100.0); AaDO2 407.3 mmHg; COHb 0.4 % (0.5-1.5); MetHb 0.2 % (0.0-1.5); O2Hb 97.9 % (94.0-97.0); SITE, ABG Right Radial; VENT MODE, BG NRB MASK
[2020-02-02] MEDS ORDERED: NOREPINEPHRINE 8 MG in IV NS 0.9% 242 ML IV PRN (13:00)
--- NOTE | 2020-02-02 13:00 | NUR ---
Dr Barrett contacted pt's daughter via phone to inform about Intubation, family agreed, also obtain telephone consent for plasma
--- NOTE | 2020-02-02 13:10 | NUR ---
Anesthesiologist and RT team at bed site, patient is ready to intubate
--- NOTE | 2020-02-02 13:20 | NUR ---
PT. INTUBATED BY ANESTHESIOLOGIST FOR AIRWAY PROTECTION WITH 7.5 ET TUBE SECURED @ 23 CM LIPLINE. CO2 DETECTOR CHANGED TO YELLOW COLOR POST INTUBATION. BREATH SOUNDS CLEAR BILATERAL WITH SYMMETRICAL CHEST RISE ON POST INTUBATION. VENT SETTINGS BELOW ORDER: AC 26 VT 500 FIO2 60% PEEP +5 VENT IS PLUGGED INTO RED OUTLET WITH ALARMS ON AND FUNCTIONING. ANGELIQUE @ HEAD OF THE BOARD. Addendum: 02/02/20 at 1345 by BETINA PARIS RT Amended: Links added.
--- NOTE | 2020-02-02 13:20 | NUR ---
patient is intubated. with 7.5/23 tube size, tolerating settings well, SPO2 is 98%,BP:128/64,HR 94, RR 26, cont to monitor
[2020-02-02] MEDS ORDERED: PROPOFOL 100 ML IV PRN (13:30)
--- NOTE | 2020-02-02 14:00 | NUR ---
ET TUBE PLACEMENT VERIFIED WITH XRAY
--- NOTE | 2020-02-02 15:30 | NUR ---
RN NOTE Received phone call from lab blood bank ([facility]) notified plasma is ready, however patient has only one midline with Amiodarone drip, placed order for PICC line placement earlier, notifyed by nursing cranberry bog supervisor, that PICC line nurse will arrive at 1999, notified blood bank and will endorse to force dispatcher
[2020-02-02 16:01] LABS: PLATELET COUNT (AUTO) 308 /CMM (150-450)
[2020-02-02 16:16] LABS: ABG BASE EXCESS -13.5 mmol/L; ABG OXYGEN SATURATION 99.2 % (92.0-98.5); ABG PCO2 18.6 mmHg (35.0-45.0); ABG PH 7.368 (7.350-7.450); ABG PO2 170.8 mmHg (75.0-100.0); AaDO2 236.5 mmHg; COHb 0.8 % (0.5-1.5); O2Hb 98.4 % (94.0-97.0); PEEP,BG 5 cm H2O; SITE, ABG Right Radial; VT, ABG 500 mL
--- NOTE | 2020-02-02 16:25 | NUR ---
fio2 decreased from 60% to 40% due to 170 PaO2 and 100% SPO2. Addendum: 02/02/20 at 1625 by BETINA PARIS RT Amended: Links added.
[2020-02-02 16:59] LABS: D-DIMER 1.03 mg/L(FEU (0.17-0.50)
--- NOTE | 2020-02-02 17:00 | NUR ---
PATIENT'S BP IS UNSTABLE, CONTATCTED FUNCTIONAL MENTAL DISABILITY TEACHER IN ORDER TO CHANGE OR DC RATE OF AMIODARONE, BEEN TOLD LEAVE THE SAME RATE, DR MCCRAY NOTIFIED, PHARMACY NOTIFIED, CONT TO MONITOR
--- NOTE | 2020-02-02 19:00 | NUR ---
PATIENT BP KEEPS DROPPING TO RANDOMLY DOWN AND UP, CONTINUE TO MONITOR , STAYING AT SAME RATE OF AMIODARONE
--- NOTE | 2020-02-02 19:24 | NUR ---
PATIENT NOTED IN BED, WITH NO READABLE VITAL SINS,CODE BLUE INITIATED, PATIENT FULL CODE Addendum: 02/02/20 at 1999 by Karin oCx RN ADDENDUM CPR INITIATED, CODE TEAM ARRIVED 1924
--- NOTE | 2020-02-02 19:29 | NUR ---
Patient HR in , called JULIANA BROWN
--- NOTE | 2020-02-02 19:50 | NUR ---
UPON ARRIVAL TO UNIT, JULIANA BROWN WAS CALLED ON PT CODE TEAM AT BEDSIDE AND REMAINED UNTIL 1939 PT SURVIVED. RT AT BEDSIDE FOR STAT ABG ORDERED.
--- NOTE | 2020-02-02 19:50 | NUR ---
CALLED DR HOLLINGSWORTH INFORMED ABOUT JULIANA BROWN, ORDERED 12 LEADS EKG, WILL FOLLOW UP
--- NOTE | 2020-02-02 20:10 | NUR ---
ICU OV NOTE PT REMAIN IN CODE BLUE, WITH TEAM AT BED SIDE. CALL THE FAMILY TALK WITH GLORY LÓPEZ DTR AND ALSO BROTHER CAME ON LINE BOTH DECIDED TO PUT PT ON DNR AT THIS TIME. 2013 CPR STOPPED ER MD RAMIREZ DECLARED PT .
--- NOTE | 2020-02-02 21:35 | NUR ---
AT 1999 CALLED CODE BLUE, PT WITHOUT PULSE. CODE TEAM WAS AT BEDSIDE. STAFF IN PROPER PPE. PT , PRONOUNCED AT 2013 FAMILY MADE AWARE DAUGHTER GLORY.
--- NOTE | 2020-02-02 21:45 | NUR ---
CALLED [facility] SPOKE WITH TORSTEN, INFORMED PT IS NOT A CANDIDATE AND WILL NOT CONTINUE.
[2020-02-02] MEDS ORDERED: AMIODARONE 150 MG/3 ML VIAL IV ONE ×2 (21:53)
[2020-02-02] MEDS ORDERED: ATROPINE SULFATE 1 MG/10 ML DISP.SYRIN IV ONE (21:53)
[2020-02-02] MEDS ORDERED: ADENOSINE 6 MG/2 ML VIAL IVP ONE (21:53)
[2020-02-02] MEDS ORDERED: CALCIUM CHLORIDE 1,000 MG/10 ML DISP.SYRIN IV ONE (21:53)
[2020-02-02] MEDS ORDERED: EPINEPHRINE (1:10,000) SYRINGE 1 MG/10 ML DISP.SYRIN IVP ONE ×2 (21:53)
[2020-02-02] MEDS ORDERED: SODIUM BICARBONATE SYR 50 MEQ/50 ML DISP.SYRIN IV ONE ×2 (21:53)
--- NOTE | 2020-02-02 23:30 | NUR ---
VIA DAUGHTER GLORY, ARRANGEMENTS MADE WITH HOME. [facility]. POST MORTEM CARE DONE. AWAITING TRANSPORTATION SERVICES. Addendum: 02/03/20 at 0337 by LUZ ELENA RASHID RN VAL[facility] AND [facility] PHONE NUMBER [phone]
--- NOTE | 2020-02-03 04:00 | NUR ---
STILL AWAITING MORTUARY, NURSING LANGUAGE ARTS TEACHER AWARE.
--- NOTE | 2020-02-03 05:10 | NUR ---
VIVIANA FROM [facility] ARRIVED. NO BELONGINGS AT BEDSIDE. CHARGE NURSE AWARE. ADMINISTRATIVE ASSISTANT DATA ENTRY AWARE.
[2020-02-03 11:08] LABS: IMMUNOGLOBULIN A, SERUM 75 mg/dL (64-422); IMMUNOGLOBULIN G, SERUM 238 mg/dL (586-1602); IMMUNOGLOBULIN M, SERUM 125 mg/dL (26-217)
== END 2020-02-02 21:54 | disposition expired | DRG 871 ==
LOC: ER 21:57 → TRANSITION 01-29 01:29 → TELE1 01-30 17:28 → ICUOV 01-30 22:55
PROC: 05HB33Z Insertion of Infusion Device into Right Basilic Vein, Percutaneous Approach (ICD-10-PCS; 2020-01-31)
PROC: 02HV33Z Insertion of Infusion Device into Superior Vena Cava, Percutaneous Approach (ICD-10-PCS; principal; 2020-02-01)
PROC: B548ZZA Ultrasonography of Superior Vena Cava, Guidance (ICD-10-PCS; 2020-02-01)
PROC: 0BH17EZ Insertion of Endotracheal Airway into Trachea, Via Natural or Artificial Opening (ICD-10-PCS; 2020-02-02)
PROC: 5A1935Z Respiratory Ventilation, Less than 24 Consecutive Hours (ICD-10-PCS; 2020-02-02)
DX: A41.89 Other specified sepsis (principal); U07.1 COVID-19; I21.A1 Myocardial infarction type 2; J12.89 Other viral pneumonia; N17.0 Acute kidney failure with tubular necrosis; D65 Disseminated intravascular coagulation [defibrination syndrome]; G92 Toxic encephalopathy; E43 Unspecified severe protein-calorie malnutrition; J96.01 Acute respiratory failure with hypoxia; R65.21 Severe sepsis with septic shock; I16.9 Hypertensive crisis, unspecified; E87.0 Hyperosmolality and hypernatremia; J90 Pleural effusion, not elsewhere classified; I47.2 Ventricular tachycardia; E87.2 Acidosis; E87.6 Hypokalemia; I48.91 Unspecified atrial fibrillation; Z79.01 Long term (current) use of anticoagulants; E88.09 Other disorders of plasma-protein metabolism, not elsewhere classified; I16.0 Hypertensive urgency; I46.9 Cardiac arrest, cause unspecified; Z66 Do not resuscitate; I12.9 Hypertensive chronic kidney disease with stage 1 through stage 4 chronic kidney disease, or unspecified chronic kidney disease; N18.9 Chronic kidney disease, unspecified; D53.9 Nutritional anemia, unspecified; E83.42 Hypomagnesemia; F03.90 Unspecified dementia, unspecified severity, without behavioral disturbance, psychotic disturbance, mood disturbance, and anxiety
CPT/HCPCS: 36415; 36600; 71045-TC; 76770-TC; 80048-TC; 80061-TC; 80076-TC; 80202-TC; 82550-TC; 82728-TC; 82784; 82803-TC; 82962-TC; 83540-TC; 83615-TC; 83735-TC; 83880; 83970; 84100-TC; 84132-TC; 84155; 84165; 84443-TC; 84484-TC; 85025-TC; 85378-TC; 85385-TC; 85396; 85610-TC; 85730-TC; 86140-TC; 86334; 86850-TC; 87040-TC; 87081-TC; 93307-TC; 94002-TC; 94799-TC; A4216; A6403; C9803; G0378; J0153; J0171; J0282; J0461; J0692; J1100; J1200; J1650; J1940; J2370; J3370; J3430; J3480; J3490; J7030; J7050; J7060